=== PATIENT | male | born 1980 | race Two or more races ===

== ENCOUNTER 2017-02-25 15:07 | Emergency (ER) | payer OTHER ==
[~2017-02-25] VITALS: Ht 182.9 cm; Wt 136.1 kg
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
[2017-02-25] MEDS ORDERED: IBUPROFEN 600 MG TABLET PO ONE ×2 (15:29→15:30)
[2017-02-25 17:19] VITALS: BP 139/85
--- NOTE | 2017-02-25 17:20 | NUR ---
Patient discharged to home in stable condition. Written and verbal after care instructions given. Patient verbalizes understanding of instruction. IV removed. Catheter intact and site benign. Pressure and 4x4 applied to site. No bleeding noted. DC WITH PD AT BEDSIDE.
== END 2017-02-25 17:20 | disposition home or self-care (01) ==
LOC: ER 15:10
DX: R07.89 Other chest pain (principal)
CPT/HCPCS: 71010; 93005; 99284; A4606; Z7610

== ENCOUNTER 2018-03-22 15:24 | Emergency (ER) | payer SELFPAY ==
[~2018-03-22] VITALS: Ht 182.9 cm; Wt 149.2 kg
--- NOTE | 2018-03-22 15:55 | NUR ---
PT TO ED ROOM 06. BEHAVIORAL, ACTING OUT. DENIES SI/HI. SIDE RAISL UP. HOB ELEVATED CONNECTED TO MONITOR. [employer] AT BEDSIDE. AWAITING EVALUATION BY ER PROVIDER.
--- NOTE | 2018-03-22 16:34 | NUR ---
PT REFUSED LABS/URINE TEST. PLACED ON HOLD BY [employer] FOR DTS/DTO, HOWEVER PATIENT DENIES SI/HI AND APPEARS TO BE INTOXICATED AND/OR BEING UNDER INFLUENCE OF ILLICIT DRUG(S)
--- NOTE | 2018-03-22 17:56 | NUR ---
RED GALINDO-RN AT BEDSIDE
--- NOTE | 2018-03-22 18:27 | NUR ---
OK TO DC HOME PER SALVADOR GALINDO AND DR CEJA. Patient discharged to home in stable condition. Written and verbal after care instructions given. Patient verbalizes understanding of instruction. ambulatory with a steady gait.
[2018-03-22 18:29] VITALS: BP 125/88
== END 2018-03-22 18:29 | disposition home or self-care (01) ==
LOC: ER 15:25
DX: F43.9 Reaction to severe stress, unspecified (principal)
CPT/HCPCS: A4606; Z7610

== ENCOUNTER → 2021-10-10 | Emergency (ER) | payer OTHER ==
[~2021-10-10] VITALS: Ht 182.9 cm; Wt 122.5 kg
[2021-10-10 22:11] VITALS: BP 149/84
--- NOTE | 2021-10-10 22:13 | NUR ---
PT [facility] C/O BELLY BUTTON PAIN REDNESS SWELLING. PT IS OK TO BOOK. PT IS A/OX4, RR EVEN AND UNLABORED NO SOB NOTED, VSS.
== END | disposition home or self-care (01) ==
LOC: ER 22:02
DX: Z02.89 Encounter for other administrative examinations (principal); Z71.1 Person with feared health complaint in whom no diagnosis is made

== ENCOUNTER 2021-12-19 13:18 | Emergency (ER) | payer SELFPAY ==
[~2021-12-19] VITALS: Ht 180.3 cm; Wt 102.1 kg
--- NOTE | 2021-12-19 13:27 | NUR ---
MISSAEL BURGESS "was picked up in a gas station. NOT Acting right/behavioral". The patient is alert and oriented x3. Denies pain. In room air and denies SOB. Respiration regular and unlabored. Denies SI/HI at this time. Will continue to monitor the patient.
--- NOTE | 2021-12-19 13:28 | NUR ---
The patient is calm and cooperative at this time.
--- NOTE | 2021-12-19 13:30 | NUR ---
Patient eloped from facility. Dr Batista made aware
--- NOTE | 2021-12-19 13:30 | NUR ---
The patient alert and oriented x3. Denies pain. In room air and denies SOB. Breathing even and unlabored. Denies SI/HI. Denies having any hallucinations.
[2021-12-19 13:39] VITALS: BP 118/66
== END 2021-12-19 13:40 | disposition left against medical advice (07) ==
LOC: ER 13:19
DX: R46.1 Bizarre personal appearance (principal)